=== PATIENT | female | born 1985 | race Caucasian/White ===

== ENCOUNTER 2022-01-29 12:49 | Outpatient (CLI) | payer OTHER, SELFPAY ==
--- NOTE | ~2022-01-29 | US_ITS ---
EXAMINATION: US thyroid DATE: 01/29/2022 13:27 INDICATION: Nontoxic goiter, unspecified. TECHNIQUE: Multiple ultrasound images of the thyroid were obtained. COMPARISON: None. FINDINGS: The right thyroid lobe measures 5.6 x 1.9 x 1.9 cm. The left thyroid lobe measures 5.3 x 1.6 x 1.9 c m. In the right thyroid lobe, there is a 6 mm predominantly solid, hypoechoic, [id number] nodul e with smooth margin without echogenic foci (TI-RADS TR4). In the left thyroid lobe, there is a 7 mm solid, hypoechoic, wider than tall nodule with smooth margin without echogenic foci (TR4). IMPRESSION: 1. Small thyroid nodules, likely not clinically significant. No follow-up is needed. Reviewed, dictated and finalized at location B. IMPRESSION: 1. Small thyroid nodules, likely not clinically significant. No follow-up is ne eded.
[2022-01-29 16:19] LABS: Iron 16 ug/dL (37-170)
[2022-01-29 16:31] LABS: Percent Iron Saturation 3 % (20-50)
[2022-01-29 16:56] LABS: Ferritin 3.21 ng/mL (6.24-137)
== END 2022-01-29 12:50 | disposition home or self-care (01) ==
LOC: ANHIMG 12:51
PROVIDERS: PCP Family Medicine; Visit Provider Family Medicine
DX: R53.83 Other fatigue (principal); E04.2 Nontoxic multinodular goiter
CPT/HCPCS: 36415; 76536; 82728; 83540; 83550